=== PATIENT | male | born 1965 ===

== ENCOUNTER 2021-08-10 17:43 | Outpatient (CLI) | payer BC, SELFPAY ==
[2021-08-10 18:17] LABS: D Dimer 0.42 ug/mIFEU (0-0.59); Troponin T (5th) Once 7 ng/L (0-15)
[2021-08-10 18:24] LABS: NT Pro B Type Natriuretic Pept 17 pg/mL (0-125)
== END 2021-08-10 17:44 | disposition home or self-care (01) ==
LOC: LAB 17:45
PROVIDERS: PCP General Practice; Visit Provider Nurse Practitioner
DX: R06.02 Shortness of breath (principal)
CPT/HCPCS: 83880; 84484; 85378

== ENCOUNTER 2021-08-29 20:38 | Emergency (ER) | payer BC, SELFPAY ==
[2021-08-29 20:58] VITALS: BP 145/97; PULSE 82; RESP 16; TEMP 37.3; O2SAT 96; BMI 32.6
--- NOTE | 2021-08-29 21:00 | XRR_ITS ---
PROCEDURE INFORMATION: Exam: XR Chest Exam date and time: 08/29/2021 10:08 PM Age: 56 years old Clinical indication: Other: Palpitations TECHNIQUE: Imaging protocol: XR of the chest. Views: 1 view. COMPARISON: CR XR chest 2V* [id number] 08/10/2021 3:58 PM FINDINGS: Lungs: Unremarkable. No consolidation. Pleural spaces: Unremarkable. No pleural effusion. No pneumothorax. Heart/Mediastinum: Unremarkable. No cardiomegaly. Bones/joints: Unremarkable. XR/XR chest 1V portable [id number] IMPRESSION: No acute findings.
--- NOTE | 2021-08-29 21:00 | ECG_ITS ---
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 Measurements Intervals [place] Rate: 81 P: -2 ND: 178 QRS: 2 QRSD: 93 T: 8 QT: 351 QTc: 409 Interpretive Statements SINUS RHYTHM No previous ECG available for comparison Electronically Signed On 08-30-2021 15:18:24 CDT by Puma Jordan M.D. [id number]
[2021-08-29 22:06] LABS: Basophils # 0.1 10^3/uL (0.0-0.1); Eosinophils # 0.3 10^3/uL (0.0-0.8); Eosinophils % 4.9 %; Hematocrit 42.8 % (42.0-52.0); Hemoglobin 14.8 g/dL (11.7-16.6); Lymphocytes # 1.9 10^3/uL (0.8-4.8); Lymphocytes % 31.4 %; Mean Corpuscular HGB Conc 34.6 g/dL (30.0-36.0); Mean Corpuscular Hemoglobin 29.5 pg (28.0-34.0); Mean Corpuscular Volume 85.4 fl (80-94); Mean Platelet Volume 11.2 fL (7.4-10.4); Monocytes # 0.6 10^3/uL (0.2-0.9); Monocytes % 9.7 %; Neutrophils # 3.13 10^3/uL (1.8-7.7); Neutrophils % 52.5 %; Nucleated Red Blood Cells % 0 %; Platelet Count 221 10^3/cmm (130-400); Red Blood Count 5.01 10^6/uL (4.1-5.3); Red Cell Distribution Width 12.5 % (12.1-15.1)
[2021-08-29 22:28] LABS: Blood Urea Nitrogen 13 mg/dL (6-20); Calcium 9.3 mg/dL (8.5-10.5); Carbon Dioxide 21 mmol/L (22-29); Chloride 105 mmol/L (98-107); Creatinine Clr Calc Pharmacy 93.9784; Glomerular Filtration Rate 76.7 mL/min (90-130); Glucose 150 mg/dL (65-115); Magnesium 2.2 mg/dL (1.7-2.3); Osmolality Calculated 287 mOsm/kg (285-295); Sodium 137 mmol/L (136-145)
[2021-08-29 22:30] LABS: Anion Gap 15.3 (5-19); Potassium 4.3 mmol/L (3.5-5.1); Troponin(5th) Baseline 7 ng/L (0-15)
--- NOTE | 2021-08-29 23:00 | ECG_ITS ---
[facility] Test Date: 2021-08-29 Pat Name: Oz Mane Department: Room: Gender: Male Online Activist: : 1965 Requested By: John Bates Order Number: [id number] Lazaro MD: Puma Jordan M.D. Measurements Intervals [place] Rate: 74 P: 9 GA: 179 QRS: 4 QRSD: 86 T: 13 QT: 360 QTc: 400 Interpretive Statements SINUS RHYTHM Compared to ECG 08/29/2021 21:47:59 No significant changes Electronically Signed On 08-30-2021 15:23:56 CDT by Puma Jordan M.D. [id number]
--- NOTE | 2021-08-29 23:27 | ED_ITS ---
Documented by User: THONY Hedrick 08/30/21 02:56 HPI - SOB/Dyspnea General: Chief Complaint: Shortness of Breath/Dyspnea Stated Complaint: Heart problems, has heart monitor Time Seen by Provider: 08/29/21 23:02 History of Present Illness: HPI Narrative: Patient is a 56-year-old male comes to the ED with shortness of breath. Past medical history of hypertension and hypercholesterolemia patient has been having episodes of shortness of breath and palpitations for the past 3 weeks. His PCP currently has him wearing an event monitor. he reports having episodes of palpitations shortness of breath daily. Today he had a brief episode this morning while he was at work. Tonight he had another episode of shortness of breath and palpitations that lasted for approximately an hour. He also endorsed having some mild chest pain during that episode. Episodes of shortness of breath usually last anywhere from 10 to 20 minutes. They occur randomly and happen when he is active or at rest. Currently here in the ED he has no sym ptoms and denies any chest pain or shortness of breath currently. Associated symptoms: Reports chest pain and palpitations; Deny abdominal pain, fever(s), nausea, orthopnea or vomiting Review of Systems Const: Denies: fever(s), chills or fatigue Eyes: Denies: change in vision or eye discomfort ENMT: Denies: throat pain, odynophagia, nasal discharge or nasal congestion Card: Reports: chest pain and palpitations; Denies: edema, swelling of feet/ankles, dyspnea on exertion or orthopnea Resp: Reports: dyspnea; Denies: productive cough or non-productive cough GI: Denies: abdominal pain, nausea, vomiting, diarrhea, constipation or teri tochezia : Denies: flank pain, difficulty urinating, dysuria or hematuria Musc: Denies: neck pain, back pain or extremity swelling Skin/Breast: Denies: rash or new lesions Neuro: Denies: headache(s), numbness in extremities or weakness in extremities [facility] ED PFSH: Medical History Hypercholesterolemia Hypertension Physical Exam Const: COMMON NORMALS: no acute distress, patient oriented x3 and alert GENERAL APPEARANCE: cooperative and comfortable HENMT: COMMON NORMALS: normocephalic HEAD & SCALP: normocephalic MOUTH: Normal oral and palatal mucosa present THROAT: posterior oropharynx normal and uvula midline Eye: COMMON NORMALS: Equal, round and reactive pupils present and conjunctivae normal CONJUNCTIVA: Yes conjunctivae normal PUPIL: Yes Equal, round and reactive pupils present Neck/C-Spine: COMMON NORMALS: supple GENERAL: Yes normal visual inspection Resp: COMMON NORMALS: normal respiratory effort, No retractions, No use of accessory muscles and clear to auscultation bilaterally AUSCULTATION: clear to auscultation bilaterally Cardio: COMMON NORMALS: regular rate, regular rhythm, S1 normal heart sound present, S2 normal heart sound present, No gallops present (Cardio), No clicks present (Cardio), No murmurs present (Cardio) and Peripheral pulses 2+ throughout RATE: regular rate RHYTHM: regular rhythm HEART SOUNDS: S1 normal heart sound present and S2 normal heart sound present PERIPHERAL PULSES: Peripheral pulses 2+ throughout GI: COMMON NORMALS: Normal to inspection, nondistended, normoactive bowel sounds present, Soft to palpation, non-tender and no masses PALPATION: Yes Soft to palpation : COMMON NORMALS: Yes no CVA tenderness BLADDER/KIDNEY EXAM: Yes no CVA tenderness Back/Pelvis: COMMON NORMALS: no CVA tenderness Extremity: COMMON NORMALS: normal to inspection Neuro: COMMON NORMALS: patient oriented x3 and moves all extremities SENSORIUM/ORIENTATION: Yes alert Skin: GENERAL SKIN EXAM: dry skin Course Vital Signs: Vital signs: Vital Signs Temperature 99.1 F 08/29/21 20:58 Pulse Rate 70 08/30/21 00:22 Respiratory Rate 20 H 08/30/21 00:22 Blood Pressure 134/78 08/30/21 00:22 Pulse Oximetry 93 08/30/21 00:22 MDM - SOB/Dyspnea Medical Decision Making Patient is a 56-year-old male comes to the ED with episodes of palpitations and shortness of breath. He has been going on now for 3 weeks and he currently is wearing an event monitor. Patient had an episode tonight with palpitation and shortness of breath that lasted for close to an hour. Symptoms resolved before he arrived to ED. Here in the ED he has no current symptoms and is feeling normal. Vitals are stable. Exam is benign. CBC and CMP were unremarkable. Troponins are negative. EKG showed no acute findings. Chest x-ray shows no acute findings. I talked with Dr. Meraz about patient case and he agreed that patient stable for discharge home. He is diagnosed with heart palpitations and shortness of breath. He was told to continue wearing his event monitor. follow-up with his PCP as a scheduled appointment which is this coming September 03. Strict return to ED precautions given. Patient understood and agreed with plan. Lab Data I reviewed the patient's lab results. : 08/29/21 22:00 08/29/21 22:00 Labs/Radiology: Radiology Impressions Chest X-Ray 08/29/21 21:00 IMPRESSION: No acute findings. Laboratory Results WBC 6.0 10^3/uL (4.0-10.0) 08/29/21 22:00 RBC 5.01 10^6/uL (4.1-5.3) 08/29/21 22:00 Hgb 14.8 g/dL (11.7-16.6) 08/29/21 22:00 Hct 42.8 % (42.0-52.0) 08/29/21 22:00 MCV 85.4 fl (80-94) 08/29/21 22:00 MCH 29.5 pg (28.0-34.0) 08/29/21 22:00 MCHC 34.6 g/dL (30.0-36.0) 08/29/21 22:00 RDW 12.5 % (12.1-15.1) 08/29/21 22:00 Plt Count 221 10^3/cmm (130-400) 08/29/21 22:00 MPV 11.2 fL (7.4-10.4) H 08/29/21 22:00 Neut % (Auto) 52.5 % 08/29/21 22:00 Lymph % (Auto) 31.4 % 08/29/21 22:00 [place] % (Auto) 9.7 % 08/29/21 22:00 Eos % (Auto) 4.9 % 08/29/21 22:00 Baso % (Auto) 1.0 % 08/29/21 22:00 Neut # (Auto) 3.13 10^3/uL (1.8-7.7) 08/29/21 22:00 Lymph # (Auto) 1.9 10^3/uL (0.8-4.8) 08/29/21 22:00 [place] # (Auto) 0.6 10^3/uL (0.2-0.9) 08/29/21 22:00 Eos # (Auto) 0.3 10^3/uL (0.0-0.8) 08/29/21 22:00 Baso # (Auto) 0.1 10^3/uL (0.0-0.1) 08/29/21 22:00 Nucleated RBC % (auto) 0 % 08/29/21 22:00 Nucleated RBCs # 0.0 /100WBC 08/29/21 22:00 Sodium 137 mmol/L (136-145) 08/29/21 22:00 Potassium 4.3 mmol/L (3.5-5.1) 08/29/21 22:00 Chloride 105 mmol/L (98-107) 08/29/21 22:00 Carbon Dioxide 21 mmol/L (22-29) L 08/29/21 22:00 Anion Gap 15.3 (5-19) 08/29/21 22:00 BUN 13 mg/dL (6-20) 08/29/21 22:00 Creatinine 1.0 mg/dL (0.7-1.2) 08/29/21 22:00 GFR Calculation 76.7 mL/min (90-130) L 08/29/21 22:00 Glucose 150 mg/dL (65-115) H 08/29/21 22:00 Calculated Osmolality 287 mOsm/kg (285-295) 08/29/21 22:00 Calcium 9.3 mg/dL (8.5-10.5) 08/29/21 22:00 Magnesium 2.2 mg/dL (1.7-2.3) 08/29/21 22:00 Troponin T Baseline 7 ng/L (0-15) 08/29/21 22:00 Troponin T 120 Minute 7.40 ng/L (0-15) 08/28/21 23:53 Delta Troponin T 0.40 ABS# (0-10) 08/28/21 23:53 EKG Data EKG 1: EKG Interpretation Date: 08/29/21 Interpretation: Sinus rhythm, 81 bpm, no ST segment elevation or depression seen. Discharge Plan Discharge Patient Disposition: Home Clinical Impression: Heart palpitations, SOB (shortness of breath) Condition: Stable Discharge Orders: Discharge ED (Routine); Ordered 08/30/21 Ordered By: Eben Almonte Referrals: Brent Strong, [Primary Care Provider] - Discharge Diet: Regular Discharge Activity: Increase activity as tolerated Patient Instructions: Heart Palpitations (DC), Shortness of Breath (ED) Activity Restrictions/Additional Instructions: Follow-up with medical provider as directed at your next scheduled appointment on this coming Friday. Continue wearing Holter monitor to try to capture episodes when at home. Continue taking all home meds as previously prescribed. Return to the ER or your medical provider if condition worsens. Please read and understand discharge instructions. Thank you for choosing [facility] for your healthcare needs today. Please realize this is an emergency room and that we are providing you with a medical screening exam and this may not be complete and all inclusive of all the testing and or work up that you may need to determine your ailment or severity of your illness. It is very important that you follow up as instructed or that you return to the Emergency Department should you have concerns or if your condition changes or worsens in any way. Coding Level of Care Code ED Membership Correspondent for Chg Fwd Exam Comprehensive Documented by User: Taqueria Meraz MD 09/10/21 02:11 HPI - SOB/Dyspnea General: Chief Complaint: Shortness of Breath/Dyspnea Stated Complaint: Heart problems, has heart monitor Time Seen by Provider: 08/29/21 23:02 [facility] ED PFSH: Medical History Hypercholesterolemia Hypertension Course Vital Signs: Vital signs: Vital Signs Temperature 99.1 F 08/29/21 20:58 Pulse Rate 70 08/30/21 00:22 Respiratory Rate 20 H 08/30/21 00:22 Blood Pressure 134/78 08/30/21 00:22 Pulse Oximetry 93 08/30/21 00:22 MDM - SOB/Dyspnea Medical Decision Making Patient is a 56-year-old male comes to the ED with episodes of palpitations and shortness of breath. He has been going on now for 3 weeks and he currently is wearing an event monitor. Patient had an episode tonight with palpitation and shortness of breath that lasted for close to an hour. Symptoms resolved before he arrived to ED. Here in the ED he has no current symptoms and is feeling normal. Vitals are stable. Exam is benign. CBC and CMP were unremarkable. Troponins are negative. EKG showed no acute findings. Chest x-ray shows no acute findings. I talked with Dr. Meraz about patient case and he agreed that patient stable for discharge home. He is diagnosed with heart palpitations and shortness of breath. He was told to continue wearing his event monitor. follow-up with his PCP as a scheduled appointment which is this coming September 03. Strict return to ED precautions given. Patient understood and agreed with plan. I discussed this case with THONY Hedrick. I have reviewed documentation. I reviewed labs and imaging. Taqueria Meraz MD Emergency Medicine Lab Data : 08/29/21 22:00 08/29/21 22:00 Labs/Radiology: Radiology Impressions Chest X-Ray 08/29/21 21:00 IMPRESSION: No acute findings. Laboratory Results WBC 6.0 10^3/uL (4.0-10.0) 08/29/21 22:00 RBC 5.01 10^6/uL (4.1-5.3) 08/29/21 22:00 Hgb 14.8 g/dL (11.7-16.6) 08/29/21 22:00 Hct 42.8 % (42.0-52.0) 08/29/21 22:00 MCV 85.4 fl (80-94) 08/29/21 22:00 MCH 29.5 pg (28.0-34.0) 08/29/21 22:00 MCHC 34.6 g/dL (30.0-36.0) 08/29/21 22:00 RDW 12.5 % (12.1-15.1) 08/29/21 22:00 Plt Count 221 10^3/cmm (130-400) 08/29/21 22:00 MPV 11.2 fL (7.4-10.4) H 08/29/21 22:00 Neut % (Auto) 52.5 % 08/29/21 22:00 Lymph % (Auto) 31.4 % 08/29/21 22:00 [place] % (Auto) 9.7 % 08/29/21 22:00 Eos % (Auto) 4.9 % 08/29/21 22:00 Baso % (Auto) 1.0 % 08/29/21 22:00 Neut # (Auto) 3.13 10^3/uL (1.8-7.7) 08/29/21 22:00 Lymph # (Auto) 1.9 10^3/uL (0.8-4.8) 08/29/21 22:00 [place] # (Auto) 0.6 10^3/uL (0.2-0.9) 08/29/21 22:00 Eos # (Auto) 0.3 10^3/uL (0.0-0.8) 08/29/21 22:00 Baso # (Auto) 0.1 10^3/uL (0.0-0.1) 08/29/21 22:00 Nucleated RBC % (auto) 0 % 08/29/21 22:00 Nucleated RBCs # 0.0 /100WBC 08/29/21 22:00 Sodium 137 mmol/L (136-145) 08/29/21 22:00 Potassium 4.3 mmol/L (3.5-5.1) 08/29/21 22:00 Chloride 105 mmol/L (98-107) 08/29/21 22:00 Carbon Dioxide 21 mmol/L (22-29) L 08/29/21 22:00 Anion Gap 15.3 (5-19) 08/29/21 22:00 BUN 13 mg/dL (6-20) 08/29/21 22:00 Creatinine 1.0 mg/dL (0.7-1.2) 08/29/21 22:00 GFR Calculation 76.7 mL/min (90-130) L 08/29/21 22:00 Glucose 150 mg/dL (65-115) H 08/29/21 22:00 Calculated Osmolality 287 mOsm/kg (285-295) 08/29/21 22:00 Calcium 9.3 mg/dL (8.5-10.5) 08/29/21 22:00 Magnesium 2.2 mg/dL (1.7-2.3) 08/29/21 22:00 Troponin T Baseline 7 ng/L (0-15) 08/29/21 22:00 Troponin T 120 Minute 7.40 ng/L (0-15) 08/28/21 23:53 Delta Troponin T 0.40 ABS# (0-10) 08/28/21 23:53 Discharge Plan Discharge Patient Disposition: Home Clinical Impression: Heart palpitations, SOB (shortness of breath) Condition: Stable Discharge Orders: Discharge ED (Routine); Ordered 08/30/21 Ordered By: Eben Almonte Referrals: Brent Strong DO [Primary Care Provider] - Discharge Diet: Regular Discharge Activity: Increase activity as tolerated Patient Instructions: Heart Palpitations (DC), Shortness of Breath (ED) Activity Restrictions/Additional Instructions: Follow-up with medical provider as directed at your next scheduled appointment on this coming Friday. Continue wearing Holter monitor to try to capture episodes when at home. Continue taking all home meds as previously prescribed. Return to the ER or your medical provider if condition worsens. Please read and understand discharge instructions. Thank you for choosing [facility] for your healthcare needs today. Please realize this is an emergency room and that we are providing you with a medical screening exam and this may not be complete and all inclusive of all the testing and or work up that you may need to determine your ailment or severity of your illness. It is very important that you follow up as instructed or that you return to the Emergency Department should you have concerns or if your condition changes or worsens in any way. Coding Level of Care Code ED Membership Correspondent for Jovi De La Torre Exam Comprehensive
[2021-08-30 00:22] VITALS: BP 134/78; PULSE 70; RESP 20; O2SAT 93
== END 2021-08-30 01:15 | disposition home or self-care (01) ==
PROVIDERS: Emergency Medicine; Emergency Provider Physician Assistant; PCP Internal Medicine
DX: R00.2 Palpitations (principal); R06.02 Shortness of breath; I10 Essential (primary) hypertension
CPT/HCPCS: 71045; 80048; 83735; 84484; 85025; 93005; 99284

== ENCOUNTER 2023-11-28 06:55 | Outpatient (CLI) | payer BC, SELFPAY ==
--- NOTE | 2023-11-28 07:01 | MR_ITS ---
WS: [id number] MRI HEAD WITHOUT CONTRAST WITH ATTENTION TO THE INTERNAL AUDITORY CANALS TECHNIQUE: Sagittal T1, T2 axial, T2 axial flair, axial susceptibility weighted imaging, axial diffus ion weighted images, and coronal T2 images were obtained. Noncontrast IAC protocol performed. Patient refused gadolinium contrast due to claustrophobia and difficulty breathing CLINICAL INFORMATION: BILATERAL HEARING LOSS COMPARISON: None. FINDINGS: No evidence of restricted diffusion to suggest acute ischemia. Ventricular system and basal cisterns are patent. Mild small vessel changes. Mild parenchymal volume loss. Normal posterior fossa. Normal v ascular flow voids at the skull base. No extra-axial fluid collections. No evidence of mass or mass e ffect. Paranasal sinuses and mastoid air cells are well aerated. Tiny retention cyst LEFT maxillary s inus. No hemosiderin on the susceptibility weighted images. Normal optic chiasm and pituitary infundi bulum. Temporal lobes and hippocampal formations are normal in appearance. Noncontrast IACs are normal in appearance. Normal trigeminal nerve root entry zones. Proximal 7th and 8th cranial nerves appear normal. MR/MR iac's wo con [id number] IMPRESSION: Gadolinium not administered due to patient claustrophobia and diffi culty breathing 1. Noncontrast IACs are normal. Proximal seventh and eighth cranial nerves riki ear normal. 2. Normal trigeminal nerve root entry zones. 3. Mild small vessel changes. Mild parenchymal volume loss. 4. Paranasal sinuses and mastoid air cells are well aerated. Small retention c yst LEFT maxillary sinus. 5. No hemosiderin on susceptibility-weighted images.
== END 2023-11-28 06:56 | disposition home or self-care (01) ==
PROVIDERS: PCP Internal Medicine; Visit Provider Specialist
DX: H90.3 Sensorineural hearing loss, bilateral (principal); H93.11 Tinnitus, right ear; J34.1 Cyst and mucocele of nose and nasal sinus
CPT/HCPCS: 70551